=== PATIENT | female | born 1995 ===

== ENCOUNTER 2017-11-25 19:25 | Emergency (ER) | payer BC ==
[2017-11-25 19:34] VITALS: BP 119/76
[2017-11-25] MEDS ORDERED: Fluorescein Sod TOPICAL 0.6* 0.6 MG TEST OPHTHALMIC ONE (19:36)
[2017-11-25] MEDS ORDERED: Tetracaine 0.5% OPTH.SOL 4 ML* 1 DROP BTL LEFT EYE ONE (19:36)
--- NOTE | 2017-11-25 19:37 | UC ---
Eye Complaint HPI - HPI Summary HPI Summary: 22 yo female presents with left eye irritation for the last 2 days. She tells me that 2 days ago she woke up with mild redness and clear drainage from her left eye. Today seemed a little worse and has felt like there is something "in her eye" all day. She does wear contacts, but changes them daily and has not worn them in the last 2 days. She also mentions that she had a corneal ulcer in this eye a few years ago that healed well. Denies fever, chills, or recent illness. She is confident that she did not injure her eye or get anything into it. - History of Current Complaint Chief Complaint: UCEye Stated Complaint: EYE COMPLAINT Time Seen by Provider: 11/25/17 19:32 Hx Obtained From: Patient Hx Last Menstrual Period: 1 1/2 WEEKS AGO Onset/Duration: Sudden Onset Timing: Constant Severity Initially: Mild Severity Currently: Mild Pain Intensity: 3 Pain Scale Used: 0-10 Numeric - Allergies/Home Medications Allergies/Adverse Reactions: Allergies Allergy/AdvReac Type Severity Reaction Status Date / Time No Known Allergies Allergy Verified 11/25/17 19:34 Home Medications: Home Medications Control* 11/25/17 [History] Oxymetazoline HCl [Nasal [place]] 11/25/17 [History] PMH/Surg Hx/FS Hx/Imm Hx - Additional Past Medical History Additional PMH: Allergies - Surgical History Surgical History: None - Family History Known Family History: Positive: None - Social History Occupation: Student Lives: With Family Alcohol Use: Occasionally Substance Use Type: None Smoking Status (MU): Never Smoked Tobacco Review of Systems Constitutional: Negative Skin: Negative Eyes: Drainage, Eye Redness ENT: Negative Respiratory: Negative Cardiovascular: Negative Gastrointestinal: Negative Neurological: Negative Psychological: Negative All Other Systems Reviewed And Are Negative: Yes Physical Exam - Summary Physical Exam Summary: GENERAL: NAD. WDWN. No pain distress. SKIN: No rashes, sores, lesions, or open wounds. HEENT: Head: AT/NC Eyes: EOM intact. PERRLA. RIGHT EYE: Conjunctiva clear without inflammation or discharge. LEFT EYE: Mild scleral injection medially. Mild watering with conjunctival erythema. Fluorescein dye exam: No increased uptake, ulcer, abrasion, or everett sign appreciated. Ears: Hearing grossly normal. TMs intact, no bulging, erythema, or edema. Nose: Nasal mucosa pink and moist. NTTP maxillary and frontal sinus. Throat: Posterior oropharynx without exudates, erythema, or tonsillar enlargement. Uvula midline. NECK: Supple. Nontender. No lymphadenopathy. CHEST: No accessory muscle use. Breathing comfortably and in no distress. CV: Pulses intact. Brisk cap refill. NEURO: Alert. CN II-XII grossly intact. PSYCH: Age appropriate behavior. Triage Information Reviewed: Yes Vital Signs: Initial Vital Signs Temp 97.9 F 11/25/17 19:31 Pulse 72 11/25/17 19:31 Resp 16 11/25/17 19:31 BP 119/76 11/25/17 19:31 Pulse Ox 99 11/25/17 19:31 Eye Complaint Course/Dx - Course Course Of Treatment: Left eye irritation. Rx for ofloxacin drops and f/u with eye doctor if symptoms persist. - Differential Dx/Diagnosis Provider Diagnoses: Left eye conjunctivitis Discharge - Sign-Out/Discharge Documenting (check all that apply): Discharge/Admit/Transfer - Discharge Plan Condition: Stable Disposition: HOME Prescriptions: Ofloxacin 0.3%(Ophth)(Nf) [Ocuflox OPTH 0.3%(NF)] 1 drop LEFT EYE QID #1 btl Patient Education Materials: Conjunctivitis (ED) Referrals: No Primary Care Phys,NOPCP [Primary Care Provider] - Brenton Mack MD [Medical Doctor] - If Needed Additional Instructions: If you develop a fever, shortness of breath, chest pain, new or worsening symptoms - please call your PCP or go to the ED. 1) If your eye worsens or does not improve with antibiotic eye drops - please call Dr. Mack at the number below to schedule a follow up appointment - Billing Disposition and Condition Condition: STABLE Disposition: Home
[2017-11-25] MEDS ORDERED: Ciprofloxacin 0.3% OPTH.SOL* 2.5 ML BTL LEFT EYE ONE (19:52)
== END 2017-11-25 20:15 | disposition home or self-care (01) ==
LOC: UCEAST 19:25
DX: H10.9 Unspecified conjunctivitis (principal)
CPT/HCPCS: 99202; A9270-GY; G0463